=== PATIENT | female | born 1985 | race African-American/Black ===

== ENCOUNTER 2018-12-09 15:13 | Emergency (ER) | payer OTHER, MEDICAID ==
[~2018-12-09] VITALS: Ht 162.6 cm; Wt 56.7 kg
[~2018-12-09 15:13] MED LIST: ABILIFY10 MG PO; ACETAMINOPHEN-1 EAC1 PO; ALEVE220 M1; AMOXICILLIN; AMOXICILLIN 50500 M1 PO; AMOXICILLIN 50500 MG PO; AMOXICILLIN500 M1 PO; ANTI DIARRHEAL PO; APAP500; ATENOLOL 25 MG25 M1; ATENOLOL 25 MG25 M1 PO; AUGMENTIN 875875 MG PO; AZITHROMYCIN 2250 MG PO; BACTRIM DS TAB1 EACH PO; BENADRYL25 MG PO; BENTYL 10 MG CA10 M1 PO; BENTYL 20 MG TA20 M1 PO; BUTALB-APAP-CA1 EACH PO; CIPROFLOXACIN500 M1 PO; CLONIDINE HCL0.1 MG PO; CYCLOBENZAPRINE10 MG PO; DARVOCET-N 1001 EAC1 PO; DEPO-PROVER150 MG/M1; DIFLUCAN200 MG PO; DOXYCYCLINE 10100 M1 PO; DOXYCYCLINE 10100 MG PO; FAMOTIDINE PO; FIORICET 50-321 EACH PO; FLAGYL500 MG PO; FLEXERIL PO; HYDROCODON-ACE1 EAC1; HYDROCODON-ACE1 EAC7 PO; HYDROCODONE-AP1 EAC6 PO; IBUPROFEN 600600 M1 PO; IBUPROFEN 800800 M1 PO; INDOMETHACIN 2525 MG PO; LORCET PLUS 7.51 TAB PO; LORTABELXR PO; LUPRON DEPOT11.25 M2; MEDROL DOSPAK21 TAB PO; METROGEL-VAGINA70 GM VG; MOBIC7.5 M1 PO; MOTION RELIEF25 MG PO; NAPROSYN500 MG; NAPROSYN500 MG PO; NEURONTIN 300300 M1; NEURONTIN 300300 M1 PO; NEXIUM40 MG PO; NOHOMEMEDICATIONS; NORCO 5-325 TA1 EAC1 PO; NORCO 5-325 TA1 EACH PO; NORFLEX100 MG PO; ONDANSETRON HCL4 M2 PO; PAMELOR25 MG PO; PENICILLIN V P500 MG PO; PERCOCET 5-3251 EACH PO; PHENERGAN 25 MG25 M1 PO; PREDNISONE 20 M20 M1 PO; PROZAC 20 MG20 MG; SKELAXIN 800 M800 M1 PO; TENORMIN25 MG PO; ULTRAM 50MG TAB50 MG PO; VICODIN 5-5001 EACH PO; XANAX 0.5 MG0.5 M1; XANAX 0.5 MG0.5 M1 PO; ZOFRAN 4 MG ORAL4 MG PO; ZOFRAN ODT4 MG PO; ZOFRAN4 MG PO
[2018-12-09] MEDS ORDERED: ACETAMINOPHEN-1 EAC1 PO (15:28)
[2018-12-09] MEDS ORDERED: KEFLEX500 M1 PO (15:28)
[2018-12-09 16:05] VITALS: BP 133/91
== END 2018-12-09 16:06 | disposition home or self-care (01) ==
LOC: M.ERS 15:13
DX: I10 Essential (primary) hypertension (principal); K08.89 Other specified disorders of teeth and supporting structures; F17.200 Nicotine dependence, unspecified, uncomplicated; N80.9 Endometriosis, unspecified; F31.9 Bipolar disorder, unspecified; K58.9 Irritable bowel syndrome, unspecified; F41.9 Anxiety disorder, unspecified; Z90.89 Acquired absence of other organs; Z88.8 Allergy status to other drugs, medicaments and biological substances; Z88.1 Allergy status to other antibiotic agents; Z91.040 Latex allergy status; Z88.5 Allergy status to narcotic agent; Z88.6 Allergy status to analgesic agent; Z90.710 Acquired absence of both cervix and uterus

== ENCOUNTER 2018-12-13 09:36 | Emergency (ER) | payer OTHER, MEDICAID ==
[~2018-12-13] VITALS: Ht 162.6 cm; Wt 55.4 kg
[~2018-12-13 09:36] MED LIST changes: +KEFLEX500 M1 PO
[2018-12-13] MEDS ORDERED: IBUPROFEN 800800 M1 PO (09:43)
[2018-12-13 10:14] LABS: HEMATOCRIT 39.4 % (37.0-47.0); HEMOGLOBIN 13.9 gm/dL (12.0-15.0); MCH 30.7 pg (26.0-34.0); MCHC 35.4 g/dL (28.0-37.0); MCV 86.8 fL (80.0-100.0); MPV 8.5 fl. (7.2-11.1); NUCLEATED RBCS 0 /100WBC; PLATELET COUNT* 239 thou/uL (150-400); RBC 4.54 mil/uL (4.20-5.00); RDW-CV 12.6 % (10.5-14.5)
[2018-12-13 10:31] LABS: ALBUMIN 3.8 g/dL (3.4-5.0); ALKALINE PHOSPHATASE 72 U/L (46-116); ANION GAP 9 mmol/L (7-16); BUN 16 mg/dL (7-18); CALCIUM 8.9 mg/dL (8.5-10.1); CHLORIDE 105 mmol/L (98-107); CO2 27 mmol/L (21-32); CREATININE 0.8 mg/dL (0.6-1.3); GLUCOSE 91 mg/dL (70-99); LIPASE 120 U/L (73-393); POTASSIUM 3.5 mmol/L (3.5-5.1); SGOT 13 U/L (15-37); SGPT 18 U/L (30-65); SODIUM 141 mmol/L (136-145); TOTAL BILIRUBIN 0.3 mg/dL (<0.1-1.0); TOTAL PROTEIN 6.7 g/dL (6.4-8.2); TROPONIN-I LEVEL <0.06 ng/mL (<0.06)
[2018-12-13 10:45] LABS: ABSOLUTE BASOPHILS 0.1 thou/uL (0.0-0.2); ABSOLUTE EOSINOPHILS 0.9 thou/uL (0.0-0.7); ABSOLUTE LYMPHOCYTES 1.7 thou/uL (0.8-5.3); ABSOLUTE MONOCYTES 0.2 thou/uL (0.0-1.2); ABSOLUTE NEUTROPHILS 2.2 thou/uL (1.6-8.1); PLATELET ESTIMATE ADEQUATE
[2018-12-13 10:58] LABS: PROTIME 10.3 Seconds (9.20-11.50)
[2018-12-13] MEDS ORDERED: CEFDINIR300 MG PO (11:59)
[2018-12-13] MEDS ORDERED: CLONIDINE0.1 PO (11:59)
[2018-12-13] MEDS ORDERED: CYCLOBENZAPRINE5 MG PO (11:59)
[2018-12-13 12:16] LABS: URINE BILIRUBIN NEGATIVE (Negative); URINE BLOOD NEGATIVE (Negative); URINE CLARITY CLEAR; URINE COLOR YELLOW; URINE GLUCOSE-RANDOM NEGATIVE (Negative); URINE KETONES NEGATIVE (Negative); URINE LEUKOCYTES-REFLEX NEGATIVE (Negative); URINE NITRITE-REFLEX NEGATIVE (Negative); URINE PROTEIN NEGATIVE (Negative); URINE SPECIFIC GRAVITY <= 1.005 (1.005-1.030); URINE UROBILINOGEN 0.2 E.U./dl (0.2-1.0)
[2018-12-13 12:18] VITALS: BP 152/101
[2018-12-13 12:32] LABS: AMP/METHAMP Negative (Negative); BARBITURATES Negative (Negative); BENZODIAZEPINES Negative (Negative); COCAINE Negative (Negative); METHADONE Negative (Negative); OPIATES POSITIVE (Negative); PCP Negative (Negative); THC Negative (Negative)
--- NOTE | 2018-12-14 12:52 | EKG ---
[place] [address] ELECTROCARDIOGRAM REPORT Name: VIJAY SWANSON Room: [facility]#: [id number] Admission: 12/13/18 Attend Phys: Discharge: 12/13/18 Date of : 81 Report #: [id number] THIS REPORT FOR: //name// [facility] ED Test Date: 2018-12-13 Test Time: 09:41:10 Pat Name: VIJAY SWANSON Department: Room: Gender: F Promotional Marketing Analyst: James FERNANDEZ : 1985 Requested By: Hamida Holland Order Number: [id number] MD: Pablo Burciaga Measurements Intervals [place] Rate: 90 P: 66 NM: 152 QRS: -5 QRSD: 91 T: 57 QT: 371 QTc: 454 Interpretive Statements Sinus rhythm Left atrial enlargement RSR' in V1 or V2, probably normal variant Compared to ECG 05/08/2017 21:36:32 Atrial abnormality now present RSR' in V1 or V2 now present ST (T wave) deviation no longer present Electronically Signed On 12-14-2018 12:52:00 CDT by Pablo Burciaga [email or web address] <ELECTRONICALLY SIGNED> By: Pablo Burciaga MD, [facility] 12/14/18 1252 [id number] Pablo Burciaga MD, [facility] /EPI
== END 2018-12-13 12:19 | disposition home or self-care (01) ==
LOC: M.ERS 09:36
PROVIDERS: Personal Emergency Response Attendant
DX: J18.9 Pneumonia, unspecified organism (principal); I10 Essential (primary) hypertension; R07.89 Other chest pain; N80.9 Endometriosis, unspecified; M32.9 Systemic lupus erythematosus, unspecified; F31.9 Bipolar disorder, unspecified; K58.9 Irritable bowel syndrome, unspecified; F41.9 Anxiety disorder, unspecified; Z88.1 Allergy status to other antibiotic agents; Z88.5 Allergy status to narcotic agent; Z91.040 Latex allergy status; Z88.6 Allergy status to analgesic agent; Z86.14 Personal history of Methicillin resistant Staphylococcus aureus infection; Z98.890 Other specified postprocedural states; Z90.710 Acquired absence of both cervix and uterus; Z79.899 Other long term (current) drug therapy

== ENCOUNTER 2021-01-19 12:40 | Emergency (ER) | payer OTHER ==
[~2021-01-19] VITALS: Ht 162.6 cm; Wt 54.4 kg
[~2021-01-19 12:40] MED LIST changes: +CEFDINIR300 MG PO; +CLONIDINE0.1 PO; +CYCLOBENZAPRINE5 MG PO
[2021-01-19] MEDS ORDERED: RAYOS5 MG PO (12:54)
[2021-01-19] MEDS ORDERED: LISINOPRIL10 MG PO (12:55)
[2021-01-19 13:41] LABS: HEMATOCRIT 42.7 % (37.0-47.0); HEMOGLOBIN 14.9 gm/dL (12.0-15.0); MCH 30.8 pg (26.0-34.0); MCHC 34.8 g/dL (28.0-37.0); MCV 88.5 fL (80.0-100.0); MPV 7.8 fl. (7.2-11.1); NUCLEATED RBCS 0 /100WBC; PLATELET COUNT* 240 thou/uL (150-400); RBC 4.82 mil/uL (4.20-5.00); WBC 5.4 thou/uL (4.0-11.0)
[2021-01-19 13:52] LABS: ALBUMIN 4.1 g/dL (3.4-5.0); CALCIUM 9.6 mg/dL (8.5-10.1); CREATININE 0.6 mg/dL (0.6-1.3); TOTAL BILIRUBIN 0.5 mg/dL (<0.1-1.0); TOTAL PROTEIN 7.5 g/dL (6.4-8.2)
[2021-01-19 14:08] LABS: ABSOLUTE BASOPHILS 0.3 thou/uL (0.0-0.2); ABSOLUTE EOSINOPHILS 0.6 thou/uL (0.0-0.7); ABSOLUTE LYMPHOCYTES 1.3 thou/uL (0.8-5.3); ABSOLUTE MONOCYTES 0.3 thou/uL (0.0-1.2); ABSOLUTE NEUTROPHILS 2.9 thou/uL (1.6-8.1); PLATELET ESTIMATE ADEQUATE
[2021-01-19] MEDS ORDERED: PREDNISONE 20 M20 MG PO (14:41)
[2021-01-19] MEDS ORDERED: FLEXERIL PO (14:41)
[2021-01-19 15:08] LABS: URINE BILIRUBIN NEGATIVE (Negative); URINE BLOOD NEGATIVE (Negative); URINE CLARITY CLEAR; URINE COLOR YELLOW; URINE GLUCOSE-RANDOM NEGATIVE (Negative); URINE KETONES NEGATIVE (Negative); URINE LEUKOCYTES-REFLEX NEGATIVE (Negative); URINE NITRITE-REFLEX NEGATIVE (Negative); URINE PROTEIN NEGATIVE (Negative); URINE UROBILINOGEN 0.2 E.U./dl (0.2-1.0)
[2021-01-19] MEDS ORDERED: NORCO5 PO ×2 (15:29→15:32)
[2021-01-19] MEDS ORDERED: NORFLEX100 MG PO (15:29)
[2021-01-19 15:32] VITALS: BP 142/104
== END 2021-01-19 15:34 | disposition home or self-care (01) ==
LOC: M.ERS 12:40
PROVIDERS: Physician Assistant
DX: M54.5 Low back pain (principal); M62.838 Other muscle spasm; M79.602 Pain in left arm; M79.601 Pain in right arm; M79.605 Pain in left leg; M79.604 Pain in right leg; M32.9 Systemic lupus erythematosus, unspecified; K58.9 Irritable bowel syndrome, unspecified; I10 Essential (primary) hypertension; Z90.710 Acquired absence of both cervix and uterus; Z88.6 Allergy status to analgesic agent; Z91.040 Latex allergy status; Z88.1 Allergy status to other antibiotic agents; Z88.8 Allergy status to other drugs, medicaments and biological substances; Z86.14 Personal history of Methicillin resistant Staphylococcus aureus infection; Z90.89 Acquired absence of other organs